=== PATIENT | female | born 1970 | race Caucasian/White ===

== ENCOUNTER 2022-09-24 21:03 | Emergency (ER) | payer MEDICAID, SELFPAY ==
[2022-09-24 21:06] VITALS: BP 170/95; PULSE 89; RESP 18; TEMP 36.4; O2SAT 98; BMI 39.4
--- NOTE | 2022-09-24 21:25 | CT_ITS ---
The [address] [address] Patient Name: PJ DAVISON MRN: [id number] date: 1970 Sex: F Assigned Patient Location: ER Current Patient Location: ER Accession/Order Number: [id number] Exam Date: 09/24/2022 21:30 Report Date: 09/24/2022 22:20 At the request of: MARCOS GORMAN Procedure: CT head/brain wo con EXAM: CT head/brain wo con HISTORY: injury COMPARISON: None. TECHNIQUE: Axial CT scans through the head were obtained without IV contrast administration. Dose reduction techniques were achieved by using: automated exposure control and/or adjustment of mA and /or kV according to patient size and/or use of iterative reconstruction technique. FINDINGS: There is no acute intracranial hemorrhage or abnormal extra-axial fluid collection. No mass effect or midline shift is seen. There is no evidence of large acute territorial infarction. There is no hydrocephalus. To the limit of CT, the posterior fossa appears unremarkable. No acute fracture is seen. There is mild right parietal scalp contusion. The visualized orbits show no abnormal mass. The visualized paranasal sinuses show no air-fluid level. Mastoid air cells are clear. IMPRESSION: No acute intracranial process. Mild right parietal scalp contusion. Electronically authenticated by: GUNNAR URRUTIA Date: 09/24/2022 22:20
--- NOTE | 2022-09-24 21:25 | CT_ITS ---
The [address] [address] Patient Name: PJ DAVISON MRN: [id number] date: 1970 Sex: F Assigned Patient Location: ER Current Patient Location: ED.MAIN Accession/Order Number: [id number] Exam Date: 09/24/2022 21:30 Report Date: 09/24/2022 22:13 At the request of: MARCOS GORMAN Procedure: CT cervical spine wo con EXAM: CT cervical spine wo con HISTORY: Pain after fall COMPARISON: None. TECHNIQUE: Axial CT imaging is performed through the cervical spine. Sagittal and coronal reformatted/reconstructed sequencing was additionally performed. FINDINGS: Chronic appearing straightening and mild reversal of the normal cervical lordosis centered at C5-C6. At this level there is moderate intervertebral disc space narrowing, endplate and uncovertebral osteophytes. Scattered age-related discogenic changes at L4-L5 and L5-S1. The dens and lateral masses of C1 are symmetric. Age-related changes of the facet joints. No prevertebral soft tissue edema. IMPRESSION: No visualized acute abnormality Electronically authenticated by: COBY MUELLER Date: 09/24/2022 22:13
--- NOTE | 2022-09-24 21:26 | PC.NURSE ---
patient tripped when she was unable to lift her left leg (from a previous surgery). patient fell backwards and hit the back of her head on the concrete. unable to assess wound due to matted hair. waiting for physician to assess. Placed gauze secured with koban. patient states she had a previous neck injury and was encouraged not to hit her head again due to some form of stenosis and herniated disk. patient was placed in a c collar. patient was able to stand and transfer to bed on her own. patient is alert and oriented. Denies any LOC or vision changes. patient feels dizzy and nauseous.
--- NOTE | 2022-09-24 21:26 | ED.HEATRA1 ---
HPI - Head Injury General Chief complaint: Head Injury Stated complaint: FALL HEAD INJURY Time Seen by Provider: 09/24/22 21:24 Mode of arrival: Wheelchair History of Present Illness HPI Narrative: mis step stepping up on stairs and fell back striking the ground with the back of her head. No LOC or nausea. Did sustain laceration. Has known C-spine disease. Has neck pain and headache. No numbness or weakness of the upper or lower extremities. Able to raise her arms above her head without difficutly but shoulders sore when doing so MD Complaint: Reports head injury Related Data Allergies Allergy/AdvReac Type Severity Reaction Status Date / Time Sulfa (Sulfonamide Allergy Mild Verified 09/24/22 21:14 Antibiotics) Review of Systems ROS Status of ROS 10 or more systems reviewed and unremarkable except as noted in history and below Exam Constitutional Vital Signs - 24 hr 09/24/22 21:06 09/24/22 22:21 Temperature 97.6 F Pulse Rate 84 Pulse Rate [Monitor] 89 Respiratory Rate 18 16 Blood Pressure 135/84 H Blood Pressure [Left Arm] 170/95 H Pulse Oximetry 98 97 Common normals: no apparent distress, oriented x3, no limitations, healthy appearing and alert HENMT Other: occipital scalp lac Eye Common normals: EOMs intact bilaterally and conjunctivae normal Neck & C-Spine Common normals: full ROM Respiratory Common normals: normal respiratory effort, no retractions and no use of accessory muscles Cardio Common normals: regular rate and regular rhythm GI Common normals: Normal to inspection, nondistended, normoactive bowel sounds present Extremity Common normals: normal to inspection, full ROM, normal capillary refill and no joint enlargement Neuro Common normals: oriented x3, CN's II-XII intact bilaterally, moves all extremities and no focal motor deficits Psych Appearance: grossly normal Course Vital Signs Vital signs: Vital Signs Temperature 97.6 F 09/24/22 21:06 Pulse Rate 89 09/24/22 21:06 Respiratory Rate 18 09/24/22 21:06 Blood Pressure 170/95 H 09/24/22 21:06 Pulse Oximetry 98 09/24/22 21:06 Temperature 97.6 F 09/24/22 21:06 Pulse Rate 84 09/24/22 22:21 Respiratory Rate 16 09/24/22 22:21 Blood Pressure 135/84 H 09/24/22 22:21 Pulse Oximetry 97 09/24/22 22:21 MDM - Head Injury MDM Narrative Medical decision making narrative: presents after fall . Fell back striking the back of her scalp and sustaining a laceration. No LOC or nausea. CT brain and C-spine without acute findings. Neuro exam normal. Lac repaired as above. patient discharged home to have wound rechecked by her PCP Discharge Plan Discharge Chief Complaint: Head Injury Clinical Impression: Closed head injury, Cervical muscle strain, Laceration of scalp Instructions: Head Injury (ED), Cervical Sprain (ED), Head Laceration (ED) Stand Alone Forms: Portal Instructions Referrals: Physician,Non-Staff, MD [Primary Care Provider] - 1 week Follow Up Appointments: have wound rechecked in 2-3 days and sal removed in 10 Procedures ED Procedure Instructions Procedures Procedures: scalp lac. 4cm vertical occipital scalp lac into SQ. No FB. 1% lido with epi as a local. Cleaned with betadine and rinsed with saline. Closed with # 6 sal. tolerated well
[2022-09-24 22:21] VITALS: BP 135/84; PULSE 84; RESP 16; O2SAT 97
[2022-09-24] MEDS: LIDOCAINE HCL 1%-EPINEPHRINE 1:100,000 20 ML MDV (23:03)
== END 2022-09-24 23:47 | disposition home or self-care (01) ==
PROVIDERS: Emergency Provider Internal Medicine
DX: S01.01XA Laceration without foreign body of scalp, initial encounter (principal); S09.8XXA Other specified injuries of head, initial encounter; S16.1XXA Strain of muscle, fascia and tendon at neck level, initial encounter; W10.9XXA Fall (on) (from) unspecified stairs and steps, initial encounter
CPT/HCPCS: 12002; 70450; 72125; 99284